=== PATIENT | male | born 1955 | race Two or more races ===

== ENCOUNTER 2018-03-27 13:13 | Emergency (ER) | payer OTHER ==
[~2018-03-27] VITALS: Ht 185.4 cm; Wt 83.5 kg
[~2018-03-27 13:13] MED LIST: CLONAZEPAM0.5 MG; LEVSIN/SL0.125 MG SL; RESTORIL7.5 MG; RITALIN20 MG
[2018-03-27] MEDS ORDERED: CIPRO XR 500 M500 MG (13:47)
[2018-03-27] MEDS ORDERED: LEVAQUIN750 MG PO (15:40)
== END 2018-03-27 15:57 | disposition home or self-care (01) ==
LOC: ER 13:13
DX: S91.3 Open wound of foot (principal); W26.8XXS Contact with other sharp object(s), not elsewhere classified, sequela

== ENCOUNTER 2022-10-06 07:15 | Outpatient (CLI) | payer OTHER ==
[~2022-10-06 07:15] MED LIST changes: +CIPRO XR 500 M500 MG; +LEVAQUIN750 MG PO
== END 2022-10-06 07:18 | disposition home or self-care (01) ==
LOC: RX STUDY 07:15
PROVIDERS: ATTEND Internal Medicine Gastroenterology
DX: K59.09 Other constipation (principal)